=== PATIENT | male | born 1960 | race Caucasian/White ===

== ENCOUNTER 2022-02-20 08:04 | Outpatient (CLI) | payer BC, SELFPAY ==
[2022-02-20 14:26] LABS: Chloride* 105 mmol/L (96-114)
[2022-02-20 14:27] LABS: Potassium* 4.5 mmol/L (3.6-5.1); Sodium* 140 mmol/L (135-149)
[2022-02-20 14:29] LABS: Cholesterol* 137 mg/dL (90-199); Estimated Glomerular Filt Rate 85 ml/min
[2022-02-20 14:30] LABS: Blood Urea Nitrogen* 16 mg/dL (7-30); Calcium* 8.8 mg/dL (8.4-10.6); Carbon Dioxide* 30 mmol/L (20-32); Glucose* 87 mg/dL (60-115); HDL Cholesterol* 58 mg/dL (>=40); LDL Cholesterol Calculated 70 mg/dL (<100); Triglycerides* 47 mg/dL (40-149)
[2022-02-20 14:59] LABS: PSA Screen* 0.28 ng/mL (0.10-4.00)
== END 2022-02-20 08:05 | disposition home or self-care (01) ==
PROVIDERS: PCP Family Medicine; Visit Provider Family Medicine
DX: Z00.00 Encounter for general adult medical examination without abnormal findings (principal); E78.5 Hyperlipidemia, unspecified; I10 Essential (primary) hypertension; Z12.5 Encounter for screening for malignant neoplasm of prostate
CPT/HCPCS: 80048; 80061; 84153

== ENCOUNTER 2023-03-15 09:12 | Outpatient (CLI) | payer BC, SELFPAY | END 2023-03-15 09:13 | disposition home or self-care (01) | PROVIDERS: PCP Family Medicine; Visit Provider Family Medicine | DX: I10 Essential (primary) hypertension (principal); E78.5 Hyperlipidemia, unspecified | CPT/HCPCS: 80048; 80061 ==

== ENCOUNTER 2024-03-03 14:41 | Outpatient (CLI) | payer BC, SELFPAY | END 2024-03-03 14:42 | disposition home or self-care (01) | PROVIDERS: PCP Family Medicine; Visit Provider Family Medicine | DX: E78.2 Mixed hyperlipidemia (principal); I10 Essential (primary) hypertension; Z12.5 Encounter for screening for malignant neoplasm of prostate | CPT/HCPCS: 80048; 80061; G0103 ==

== ENCOUNTER 2025-03-10 09:33 | Outpatient (CLI) | payer BC, SELFPAY | END 2025-03-10 09:34 | disposition home or self-care (01) | PROVIDERS: PCP Family Medicine; Visit Provider Family Medicine | DX: E78.2 Mixed hyperlipidemia (principal); I10 Essential (primary) hypertension; Z13.0 Encounter for screening for diseases of the blood and blood-forming organs and certain disorders involving the immune mechanism | CPT/HCPCS: 80048; 80061 ==